=== PATIENT | female | born 1965 ===

== ENCOUNTER → 2023-05-25 09:50 | Outpatient (CLI) | payer BC, SELFPAY ==
--- NOTE | ~2023-05-25 | MR_ITS ---
EXAMINATION: MRA brain wo con DATE: 05/25/2023 10:22 INDICATION: Pulsatile tinnitus and hearing loss TECHNIQUE: Magnetic resonance angiography (MRA) of the brain was performed without intravenous contrast by the 3 D [id number] technique. COMPARISON: None. FINDINGS: There is normal flow related signal seen within the vertebral, basilar and internal carotid arteries. There is no proximal stenosis. There are no aneurysms identified. Both A1 and P1 segments are pat ent. The left vertebral artery is dominant. Flow in the cerebral arteries is appears relatively symme tric. IMPRESSION: 1. Unremarkable brain MR angiogram. Reviewed, dictated and finalized at location A. [employer]
== END ==
PROVIDERS: PCP Nurse Practitioner Family; Visit Provider Nurse Practitioner Family
DX: H91.90 Unspecified hearing loss, unspecified ear (principal); H93.A9 Pulsatile tinnitus, unspecified ear
CPT/HCPCS: 70544

== ENCOUNTER 2023-08-17 12:44 | Outpatient (CLI) | payer BC, SELFPAY ==
--- NOTE | ~2023-08-17 | MR_ITS ---
EXAMINATION: MR brain/brain stem wo/w con DATE: 08/17/2023 13:38 INDICATION: Vertigo of central origin. TECHNIQUE: Magnetic resonance imaging (MRI) of the brain and brainstem was performed without and with 10 mL MultiHance intravenous contrast. COMPARISON: None. FINDINGS: There is no intracranial hemorrhage, acute infarction, or abnormal intracranial mass lesion . The pituitary is normal. The ventricles are normal in size. The paranasal sinuses are clear. The or bits are normal. The mastoid air cells are normal. IMPRESSION: 1. Normal brain. Reviewed, dictated and finalized at location A. IMPRESSION: 1. Normal brain.
== END 2023-08-17 12:45 ==
PROVIDERS: PCP Psychiatry & Neurology Neurology; Visit Provider Psychiatry & Neurology Neurology
DX: H81.4 Vertigo of central origin (principal); H90.3 Sensorineural hearing loss, bilateral
CPT/HCPCS: 70553; A9577